=== PATIENT | female | born 1995 | race Caucasian/White ===

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

== ENCOUNTER → 2017-01-02 | Outpatient (REF) | payer OTHER | LOC: M LAB REF 13:17 | PROVIDERS: ATTEND Advanced Practice Midwife | DX: Z34.83 Encounter for supervision of other normal pregnancy, third trimester (principal) ==

== ENCOUNTER → 2017-01-02 | Outpatient (REF) | payer OTHER | LOC: M LAB REF 13:29 | PROVIDERS: ATTEND Advanced Practice Midwife | DX: Z34.83 Encounter for supervision of other normal pregnancy, third trimester (principal) ==

== ENCOUNTER 2017-01-14 12:05 | Inpatient (IN) | payer OTHER ==
[2017-01-14] VITALS (14 sets, daily range): BP systolic 110–164; BP diastolic 55–100
[~2017-01-14] VITALS: Ht 160 cm; Wt 82.9 kg
[~2017-01-14 12:05] MED LIST changes: -ACET50TA PO; -CORE6.25 PO; -PRIN5TAB PO; -ROBI30SU PO
[2017-01-14] MEDS ORDERED: ACET50TA PO (12:48)
[2017-01-14 13:25] LABS: MEAN CORPUSCULAR HEMOGLOBIN 26.7 pg (27.0-33.0); MEAN CORPUSCULAR HGB CONC 33.6 g/dl (32.0-36.5); MEAN CORPUSCULAR VOLUME 79.3 fl (80.0-96.0); RED CELL DISTRIBUTION WIDTH 13.2 % (11.5-14.5)
[2017-01-14] MEDS ORDERED: ROBI30SU PO (13:44)
[2017-01-14 13:56] LABS: ALBUMIN 2.4 GM/DL (3.2-5.2); ALBUMIN/GLOBULIN RATIO 0.63 (1.00-1.93); ALKALINE PHOSPHATASE 122 U/L (45-117); ALT/SGPT 18 U/L (12-78); ANION GAP 11 MEQ/L (8-16); AST/SGOT 26 U/L (15-37); BILIRUBIN,TOTAL 0.7 MG/DL (0.2-1.0); BLOOD UREA NITROGEN 7 MG/DL (7-18); CALCIUM LEVEL 8.9 MG/DL (8.5-10.1); CARBON DIOXIDE LEVEL 23 MEQ/L (21-32); CHLORIDE LEVEL 105 MEQ/L (98-107); GLUCOSE, FASTING 96 MG/DL (70-105); SODIUM LEVEL 139 MEQ/L (136-145); TOTAL PROTEIN 6.2 GM/DL (6.4-8.2)
[2017-01-14 14:05] LABS: POTASSIUM SERUM 2.7 MEQ/L (3.5-5.1)
--- NOTE | 2017-01-14 14:46 | REP ---
Portable chest, 01:47 p.m., single AP view, the patient upright: Comparison is 04/05 2002. There are diffuse bilateral interstitial and alveolar infiltrates, significantly worse on the right. There are no pleural effusions. Cardiac size is upper normal. The inocencia, mediastinum, and bony thorax are unremarkable. Signed by Dennys Rutherford MD 01/14/2017 02:37 P
[2017-01-14] MEDS ORDERED: ceFAZolin 2 GM/D5W 50 ML IV BAG (J0690) As Ordered ONE (14:59)
[2017-01-14] MEDS ORDERED: KCL 10MEQ IN 100ML SWI (KRUN) 10 MEQ in APPROPRIATE DILUENT 1 EA IV ONE ×6 (15:00→19:00)
[2017-01-14] MEDS ORDERED: OXYTOCIN INJ 10 UNITS/ML VIAL (J2590) As Ordered ONE (15:38)
[2017-01-14] MEDS ORDERED: PHENYLEPHRINE INJ 10MG/ML VIAL (J2370) As Ordered ONE (15:38)
[2017-01-14] MEDS ORDERED: fentaNYL 250 MCG/5 ML INJECTION (J3010) As Ordered ONE (15:38)
[2017-01-14] MEDS ORDERED: PROPOFOL 200 MG/20 ML VIAL As Ordered ONE (15:38)
[2017-01-14] MEDS ORDERED: ROCURONIUM BROMIDE 50 MG/5 ML VIAL/SYRINGE As Ordered ONE (15:38)
[2017-01-14] MEDS ORDERED: KETOROLAC 60 MG/2 ML VIAL (J1885) As Ordered ONE (15:38)
[2017-01-14] MEDS ORDERED: ETOMIDATE INJ 20MG/10ML VIAL As Ordered ONE (15:38)
[2017-01-14] MEDS ORDERED: LIDOCAINE 2% INJ 100 MG/5 ML SDV (FOR ANES.) As Ordered ONE (15:38)
[2017-01-14] MEDS ORDERED: METOCLOPRAMIDE INJ 10MG/2ML VIAL (J2765) As Ordered ONE (15:38)
[2017-01-14] MEDS ORDERED: dexameTHASONE 4 MG/ML 1ML VIAL (J1100) As Ordered ONE (15:38)
[2017-01-14] MEDS ORDERED: MIDAZOLAM INJ 2 MG/2 ML VIAL (J2250) As Ordered ONE (15:38)
[2017-01-14] MEDS ORDERED: ONDANSETRON 4MG/2ML VIAL (J2405) As Ordered ONE (15:38)
--- NOTE | 2017-01-14 15:50 | CR ---
DATE OF CONSULTATION: 01/14/2017 REFERRING PHYSICIAN: Dr. Gordon INDICATION: Congestive heart failure. HISTORY OF PRESENT ILLNESS: Ms. Brand is a 21-year-old female who is about to deliver her first baby. Apparently the was completely unremarkable until approximately 1 week ago when she starting having cough and slowly progressive exertional dyspnea. She also noted episode of chest pain on deep inspiration. Mild peripheral edema occurred as well. She was seen at her LAW CLERK physician's office earlier today and was found to be in significant amount of respiratory distress. She was brought to hospital for delivery. At the time of my evaluation the patient feels short of breath but does not appear to be in any extremis and certainly appears relatively comfortable. Her vital signs currently reveal blood pressure 155/89, heart rate is around 110 beats per minute, it is regular, saturation is around 90-92% on 2 liters of oxygen by nasal cannula. Her weight was documented as 96 kg. She is alert and oriented and appropriate. Her JVP does not appear grossly elevated. Lungs are relatively clear to auscultation. There are somewhat diminished breath sounds over both bases but it is subtle and there is only occasional end inspiratory crackle, air movement appears to be good. Heart exam reveals muffled heart sound related to her but I do not appreciate any chago gallop, I do not appreciate any murmur and I do not appreciate any rub. The precordial impulse is clearly displaced. Abdomen is but otherwise soft. There is 1+ peripheral edema. Neurologically she is intact. Skin exam reveals scattered blotchy erythema. LABORATORY DATA: As of today, her basic metabolic panel reveals sodium 139, potassium 2.7, BUN 7, creatinine 0.7, normal liver function test other than albumin 2.4 and protein 6.2. CBC: WBC count 18,000, hemoglobin 11, hematocrit 33 and platelet count 294,000. Urine toxicology screen was negative. Urinalysis screened negative for protein. Serology for syphilis is pending. Chest x-ray reveals cardiomegaly and pulmonary edema. Bedside echocardiogram performed a few minutes ago revealed global systolic dysfunction with estimated LVEF around 25%. There is no significant valvular disease. Small to moderate-sized pericardial effusion is noted. There appears to be some early collapse of right atrium, but it is principally in systole, no obvious diastolic collapse is noted. There is no fluctuation on mitral inflow velocity. Unable to estimate central venous pressure and pulmonary artery pressure. COMMENT: Ms. Brand is a 21-year-old previously healthy female who presents essentially in labor with signs of congestive heart failure and she has evidence for severe left ventricular systolic dysfunction, systolic congestive heart failure and also has pericardial effusion. At this point the priority is to stabilize the patient and deliver the baby. The plan is to take her to the OR as soon as possible. She already received potassium supplementation by Dr. Gordon. Will give her 40 mg of IV Lasix. I spoke with Dr. Whitaker, the anesthesiologist who will be performing the anesthesia for the surgery and there is a plan for general anesthesia as she otherwise will not tolerated horizontal position. She will also receive an A-line for the delivery. After the delivery she will be brought to intensive care unit, the potential extubation will depend on her condition. I do expect that with delivery the condition will probably improve, but it is likely that she will continue to struggle with congestive heart failure. As far as the etiology is concerned, I am not totally convinced that this represents peripartum cardiomyopathy even though it fulfills a lot of the criteria. The one thing that in my opinion is unusual is the presence of pericardial effusion. I will send pro-BNP and troponin to make sure that she does not have active myocarditis. So far her QRS complex on ECG is narrow and she has not had any arrhythmias so that makes it slightly less likely. Depending on her condition we potentially could even consider transfer to a higher care center. I will follow the patient closely with you.
[2017-01-14] MEDS ORDERED: FUROSEMIDE 40 MG/4 ML VIAL (J1940) IV ONE (16:00)
[2017-01-14] MEDS ORDERED: SUCCINYLCHOLINE 100 MG/5 ML SYRINGE (J0330) As Ordered ONE (16:25)
[2017-01-14] MEDS ORDERED: FUROSEMIDE 100 MG/10 ML VIAL (J1940) As Ordered ONE (16:47)
[2017-01-14 16:55] LABS: CORD GAS ABE V -1.9; CORD GAS HCO3 V 24.4 MEQ/L; CORD GAS O2 SAT V 39.5 %; CORD GAS PCO2 V 46.8 mmHg; CORD GAS PH V 7.335 UNITS; CORD GAS PO2 V 18.3 mmHg; CORD GAS SBC V 21.2 MEQ/L; CORD GAS TCO2 V 25.8 MEQ/L
--- NOTE | 2017-01-14 16:55 | ECGEPIP ---
Stationary ECG Study [facility] Test Date: 2017-01-14 Pat Name: KORI CHANG Department: Room: [place] [address] Gender: F Housing Assistant Property Manager: BERTA : 1995 Requested By: MARIA ESTHER Kohler Order Number: [id number] Reading MD: Alyx Wagoner Measurements Intervals [place] Rate: 104 P: 22 SC: 125 QRS: 16 QRSD: 90 T: 57 QT: 354 QTc: 467 Interpretive Statements SINUS TACHYCARDIA DIFFUSE ST T-WAVE ABNORMALITY ABNORMAL RHYTHM ECG NO PRIOR Electronically Signed On 01-14-2017 16:55:12 EDT by Alyx Wagoner
[2017-01-14 16:56] LABS: CORD GAS ABE A -3.6; CORD GAS HCO3 A 24.6 MEQ/L; CORD GAS O2 SAT A < 15.0 %; CORD GAS PCO2 A 55.9 mmHg; CORD GAS PH A 7.261 UNITS; CORD GAS PO2 A < 10.0 mmHg; CORD GAS TCO2 A 26.3 MEQ/L
--- NOTE | 2017-01-14 17:11 | ECHO ---
DATE OF PROCEDURE: 01/14/2017 INDICATION: Cardiomegaly, congestive heart failure. The patient measures 63 inches and weighs 96.1 kg REFERRING PHYSICIAN: Dr. See Clark Study was performed on 01/14/2017. DIMENSIONS: IVS: 1.1 LV: 5.0 LVPW: 1.1 LA: 3.5 Aorta: 2.8 FINDINGS: The study is of good technical quality but for absence of subcostal views. The patient is in 39th week of . Left ventricle is of normal size. It is globally hypokinetic. I estimate overall ejection fraction (EF) around 25%. Right ventricle does not appear to be grossly enlarged and appears to be normally contractile. Both atria appear normal. All four cardiac valves were reasonably well seen and appear normal. There is mild to moderate-sized pericardial effusion that is most apparent adjacent to the right ventricle. There is very apparent systolic indentation of the right atrium, but I do not appreciate any diastolic collapse as such. Inferior vena cava was not visualized. Aortic root is normal. Aortic arch and abdominal aorta were not seen. Doppler interrogation of aortic valve reveals no stenosis or insufficiency. There is trace mitral insufficiency. Tricuspid and pulmonic valves are also functionally competent. Evaluation of diastolic function is inconclusive. The patient is tachycardiac with heart rate approximately 110 beats per minute, and there is fusion of E and A wave on mitral inflow. E prime septal is 12.4 and E prime lateral is 9.3 cm/s, which are relatively preserved numbers. CONCLUSIONS: 1. Study is of acceptable technical quality. 2. Normal left ventricular (LV) size with severe global hypokinesis and overall estimated left ventricular ejection fraction (LVEF) approximately 25%. 3. Mild to moderate-sized pericardial effusion. 4. No significant valvular disease. 5. Unable to estimate central venous pressure and pulmonary artery pressure. 6. Inconclusive evaluation of diastolic function. COMMENTS: Subacute bacterial endocarditis (SBE) prophylaxis is not recommended. The results were discussed with Dr. Whitaker and Dr. Gordon.
[2017-01-14] MEDS ORDERED: LABETALOL HCL 100 MG/20 ML VIAL As Ordered ONE (17:15)
[2017-01-14] MEDS ORDERED: MAGNESIUM SULFATE 4% INJ 20GM/500ML (40MG/ML) (J3475) As Ordered ONE (17:31)
[2017-01-14] MEDS ORDERED: PROPOFOL 1,000 MG/100 ML VIAL As Ordered ONE ×2 (17:32→20:43)
[2017-01-14] MEDS: PROPOFOL 1,000 MG in APPROPRIATE DILUENT 1 EA IV SCH ×2 (17:35→20:48)
[2017-01-14 17:47] LABS: ABG BASE EXCESS -3.7 (-2.0-2.0); ABG PARTIAL PRESSURE CO2 42.4 mmHg (35.0-45.0); ABG PARTIAL PRESSURE O2 113.7 mmHg (75.0-100.0); ABG STANDARD HCO3 21.4 MEQ/L (22.0-26.0); ABG TOTAL CO2 23.3 MEQ/L (22.0-29.0); ABG pH (ARTERIAL) 7.333 UNITS (7.350-7.450)
[2017-01-14 17:53] LABS: MEAN CORPUSCULAR HEMOGLOBIN 27.1 pg (27.0-33.0); MEAN CORPUSCULAR HGB CONC 33.7 g/dl (32.0-36.5); MEAN CORPUSCULAR VOLUME 80.3 fl (80.0-96.0); RED CELL DISTRIBUTION WIDTH 13.2 % (11.5-14.5); WHITE BLOOD COUNT 19.3 10^3/uL (4.0-10.0)
[2017-01-14] MEDS ORDERED: fentaNYL 100 MCG/2 ML INJECTION (J3010) IV PRN (18:00)
[2017-01-14] MEDS: MAG Sulf (OBGYN) 20GM/500ML 20,000 MG in APPROPRIATE DILUENT 1 EA IV SCH ×2 (18:00→21:17)
[2017-01-14] MEDS ORDERED: ONDANSETRON 4MG/2ML VIAL (J2405) IV PRN (18:00)
--- NOTE | 2017-01-14 18:14 | IPN ---
DATE: 01/14/2017 Time: 5:50 pm I saw Miss Brand in the recovery room. She had a . It was apparently a difficult procedure due to a lot of adhesions from her prior abdominal surgery. She also had difficult induction with significant desaturation and required high doses of oxygen throughout the surgery to maintain saturation. She received additional dose of Lasix and put out approximately 2 liters of urine during the surgery. In recovery room her blood pressure was initially very high, but when she was started on propofol drip and settled down her blood pressure was around 140 systolic with significant fluctuations of heart rate between 100 and 110 beats per minute. She was sedated. Her jugular venous pressure was difficult to estimate but does not appear high on my exam. Lungs: Reveal bilateral crackles throughout her lung hansen. Heart: Exam reveals tachycardiac rate with regular rhythm. I do not appreciate chago gallop. I do not appreciate rub. There is still some mild degree of peripheral edema. ASSESSMENT/PLAN: Miss Brand is 21-year-old female who just underwent after she presented with fairly acute onset of congestive heart failure and pulmonary edema. She remains critically ill and echocardiogram reveal evidence for severe left ventricular systolic dysfunction. At this point, I am somewhat encouraged that she maintains good urine output and we will continue diuretics. I am going to wait until her condition stabilizes on IV propofol and all the lines are placed and depending on her blood pressure; if there is still an option will introduce IV nitroglycerin. Simultaneously, I am going to continue diuretics, but for first of all we need to replenish potassium. She will very likely remain critically ill for foreseeable future and there is a plan to keep her intubated at least overnight. Dr. Quiros will be managing ventilation and sedation.
[2017-01-14 18:18] LABS: ALBUMIN 2.3 GM/DL (3.2-5.2); ALBUMIN/GLOBULIN RATIO 0.51 (1.00-1.93); ALKALINE PHOSPHATASE 117 U/L (45-117); ALT/SGPT 20 U/L (12-78); ANION GAP 13 MEQ/L (8-16); AST/SGOT 28 U/L (15-37); BILIRUBIN,TOTAL 0.7 MG/DL (0.2-1.0); BLOOD UREA NITROGEN 7 MG/DL (7-18); CALCIUM LEVEL 9.1 MG/DL (8.5-10.1); CARBON DIOXIDE LEVEL 24 MEQ/L (21-32); CHLORIDE LEVEL 103 MEQ/L (98-107); GLUCOSE, FASTING 116 MG/DL (70-105); POTASSIUM SERUM 2.6 MEQ/L (3.5-5.1); SODIUM LEVEL 140 MEQ/L (136-145); TOTAL PROTEIN 6.8 GM/DL (6.4-8.2)
--- NOTE | 2017-01-14 18:23 | REP ---
Chest one-view HISTORY: A pulmonary edema Comparison: 01:47 p.m. 01/14/2017 Diffuse patchy density is present in the lungs consistent with bilateral infiltrates or edema increased in the right upper lobe compared to the previous study. . The heart is normal in size. The pulmonary vasculature is normal in appearance. An ET tube is present. Impression: Bilateral infiltrates or edema slightly increased in the right upper lobe compared to the previous study. Signed by Stevie Fernandez MD 01/14/2017 06:15 P
[2017-01-14] MEDS ORDERED: MAG Sulf (L&D) 4 GM/100 ML 4 GM in APPROPRIATE DILUENT 1 EA IV ONE (18:30)
--- NOTE | 2017-01-14 18:59 | CCN ---
DATE: 01/14/2017 START TIME: 172. STOP TIME: 1819. I attended Ms. Brand in the recovery room. In essence, this a 21-year-old female, 38 weeks gravid, who presented with shortness of breath. She was found to have pulmonary edema. Echocardiogram done emergently showed an ejection fraction (EF) of 25%, basically globally hypokinetic, with a small pericardial effusion not felt to be hemodynamically significant. This points to either a viral or a peripartum etiology. She was tachypneic but oxygenating. She received diuretics. She did feel a little bit better. She voided about 300-400 mL at that point. She was than taken emergently to the operating room for a stat section. Intraoperatively did well, requiring at least 10 cm of water of PEEP and then FiO2 of 60%. She was given further diuretics and voided approximately another 900 mL. She was given even more and voided another 600-800 mL. Potassium preoperatively was 2.7. She was receiving potassium replenishment the entire time, and it is still currently running. Repeat electrolytes are pending. In the recovery room ventilator manipulations were made by myself. She is currently on a PRVC rate of 12, tidal volume 400, PEEP of 10, FiO2 of 60%. Saturations run 91-96%. Blood gas obtained just prior to my arrival showed a pH of 7.33, pCO2 of 42.4, and pO2 of 113.7, 97.8% saturation on pressure control mode. Tidal volumes between 400-420 with PEEP of 5, FiO2 of 100%. Hemoglobin is 11.8, white blood cell count 19.3, platelet count 324,000. Preoperatively had a pro-BNP of 3897. Chest x-ray preoperatively showed cardiomegaly with bilateral findings consistent with pulmonary edema. Currently on exam, she is sedated on propofol. Heart rate initially about 120 but with increase in the propofol now is between 98-102 with a sinus mechanism. Blood pressure initially about 170 systolic currently, 132 systolic currently. She does over-breathe the ventilator with a respiratory rate between 18-22 without accessory muscle use. She is afebrile. HEENT is otherwise normocephalic, atraumatic. Oral endotracheal tube in place. Pupils do react, sclerae clear. Trachea is in the midline. Chest shows some symmetric expansion. There is coarse inspiratory noise scattered throughout with dependent crackles. No rubs or wheezes. Cardiac exam has a laterally displaced point of maximal impulse (PMI). Mildly tachycardic. No obvious rub. Abdomen shows her dressings to be intact. Extremities show trace edema but no cyanosis or clubbing. Neurologically she is sedate but moves all extremities. The remainder of her available laboratories show her white blood cell count and hematocrit as outlined above, and chemistries are still pending. Repeat chest x-ray done in the recovery room shows the endotracheal tube to be in good position about 2 cm above the sawyer. Increased cardiac silhouette with persistent pulmonary edema is again noted. The most pressuring problems requiring my immediate presence at the bedside: 1. Hypoxemic respiratory failure secondary to pulmonary edema. 2. Pulmonary edema secondary to cardiomyopathy, viral versus peripartum cardiomyopathy. 3. Now state. At this point, we will assure adequate sedation and pain control. Further diuresis as well as blood pressure control in view of consideration of the addition of nitroglycerine being made by cardiology. We will continue intravenous (IV) propofol as well as as-needed Versed and morphine as needed for pain. Ulcer and deep vein thrombosis (DVT) prophylaxis per the primary service. We will monitor closely regarding her overall cardiac status. I have spoken at length with Dr. Clark, who is managing that portion of her care. Decision regarding timing of repeat echo will be per his discretion. She does have an A-line in place in the left wrist. She has a Black in place as well. I anxiously await her repeat electrolytes. My hope is that with diuresis we will be able to achieve extubation in the next 24-48 hours. Overall she does remain critically ill. I left the bedside at 1820 hours. There was 52 minutes of critical care time delivered at the bedside, not including procedures. JULIET
[2017-01-14] MEDS: PANTOPRAZOLE 40MG INJ (PROTONIX) (C9113) IV SCH (19:33)
[2017-01-14] MEDS: KCL 10MEQ IN 100ML SWI (KRUN) 10 MEQ in APPROPRIATE DILUENT 1 EA IV SCH ×4 (19:34→20:48)
--- NOTE | 2017-01-14 19:56 | HPE ---
DATE OF ADMISSION: 01/14/2017 HISTORY: A 21-year-old G1, P0 female at 38-3/7 weeks gestation by last menstrual period (LMP) consistent with 10-week ultrasound, estimated date of confinement (EDC) 01/25/2017 presents with shortness of breath for the last 2 days. She has had a dry cough for about a week. Her shortness of breath has become progressively worse. She also has had a moderate headache as well. She presented to the office for a routine visit and was noted to have elevated blood pressure of 154/102. She also had worsening edema noted, but she was sent to labor floor for evaluation. COURSE: The patient initiated care at 10 weeks gestation on 06/29/2016. Her first-trimester blood pressure was 124/64, weight 186 pounds. course was unremarkable until her last visit in the office. MEDICAL HISTORY: History of gastroschisis. SURGICAL HISTORY: Gastroschisis repair as an . ALLERGIES: None. SOCIAL HISTORY: Father of the baby is involved. The patient denies cigarettes, alcohol, or drug use. She lives in [place], [place]. FAMILY HISTORY: Noncontributory. PHYSICAL EXAMINATION: Blood pressure is 154/102, 1+ proteinuria, pulse 104, respiratory rate 30. She appears to be short of breath. HEAD AND NECK: Normal. LUNGS: Showed decreased breath sounds bilaterally. HEART: Regular rhythm and tachycardic. ABDOMEN: Nontender, gravid. heart tone are category 1. Contractions rare. EXTREMITIES: 3+ lower extremity edema. LABORATORY DATA: Reveal blood type O positive, Rubella equivocal, RPR nonreactive. Hepatitis B and C negative. Diabetes screen 131. GBS negative on 01/02/2017. ASSESSMENT: A 21-year-old G1, P0 at 38-3/7 weeks gestation with pre-eclampsia with severe features, who also appears to be in respiratory distress, most likely pulmonary edema. Obtain chest x-ray, EKG. Obtain appropriate labs. Consult cardiology. Patient could have pulmonary edema or possible dilated cardiomyopathy.
[2017-01-14] MEDS ORDERED: POTASSIUM CHLORIDE 10 MEQ SR TABLET PO SCH (21:00)
[2017-01-14] MEDS ORDERED: LISINOPRIL *2.5 MG* TAB PO SCH (21:00)
[2017-01-14] MEDS: SPIRONOLACTONE 12.5MG PER 1/2 TABLET PO SCH (21:11)
[2017-01-14] MEDS: MORPHINE 2 MG/ML 1ML SYRINGE IV PRN (21:13)
[2017-01-14] MEDS: POTASSIUM CHLORIDE 10% LIQ 20 MEQ/15 ML UDC PO SCH (21:29)
[2017-01-15] VITALS (29 sets, daily range): BP systolic 90–195; BP diastolic 50–93; O2SAT 93
[2017-01-15] MEDS: PROPOFOL 1,000 MG in APPROPRIATE DILUENT 1 EA IV SCH ×5 (00:16→21:35)
[2017-01-15 00:30] LABS: ANION GAP 8 MEQ/L (8-16); BLOOD UREA NITROGEN 8 MG/DL (7-18); CALCIUM LEVEL 8.5 MG/DL (8.5-10.1); CARBON DIOXIDE LEVEL 28 MEQ/L (21-32); CHLORIDE LEVEL 104 MEQ/L (98-107); CREATININE FOR GFR 0.79 MG/DL (0.55-1.02); GLUCOSE, FASTING 109 MG/DL (70-105); POTASSIUM SERUM 3.1 MEQ/L (3.5-5.1); SODIUM LEVEL 140 MEQ/L (136-145)
[2017-01-15] MEDS ORDERED: POTASSIUM CHLORIDE 10% LIQ 20 MEQ/15 ML UDC PO ONE ×2 (00:45→16:30)
[2017-01-15] MEDS: MAG Sulf (OBGYN) 20GM/500ML 20,000 MG in APPROPRIATE DILUENT 1 EA IV SCH ×2 (01:52→17:11)
[2017-01-15] MEDS: MIDAZOLAM INJ 2 MG/2 ML VIAL (J2250) IV PRN ×5 (02:05→23:50)
[2017-01-15 05:43] LABS: MEAN CORPUSCULAR HEMOGLOBIN 26.5 pg (27.0-33.0); MEAN CORPUSCULAR VOLUME 80.4 fl (80.0-96.0); RED CELL DISTRIBUTION WIDTH 13.4 % (11.5-14.5); WHITE BLOOD COUNT 17.1 10^3/uL (4.0-10.0)
[2017-01-15 06:13] LABS: ANION GAP 12 MEQ/L (8-16); BLOOD UREA NITROGEN 8 MG/DL (7-18); CALCIUM LEVEL 8.8 MG/DL (8.5-10.1); CARBON DIOXIDE LEVEL 26 MEQ/L (21-32); CHLORIDE LEVEL 104 MEQ/L (98-107); CREATININE FOR GFR 0.76 MG/DL (0.55-1.02); GLUCOSE, FASTING 103 MG/DL (70-105); POTASSIUM SERUM 3.2 MEQ/L (3.5-5.1); SODIUM LEVEL 142 MEQ/L (136-145)
[2017-01-15 06:18] LABS: MAGNESIUM LEVEL 7.2 MG/DL (1.4-2.0)
--- NOTE | 2017-01-15 07:21 | RO ---
DATE OF OPERATION: 01/14/2017 PREOPERATIVE DIAGNOSES: 38-3/7 weeks gestation, severe preeclampsia, peripartum cardiomyopathy with pulmonary edema. POSTOPERATIVE DIAGNOSES: 38-3/7 weeks gestation, severe preeclampsia, peripartum cardiomyopathy with pulmonary edema. PROCEDURE: Primary low transverse section. SURGEON: Stevie Gordon MD DIRECTOR OF STUDENT SERVICES: Dr. Tamar Hays ANESTHESIA: General endotracheal. ESTIMATED BLOOD LOSS: 800 mL. URINE OUTPUT: 1300 mL. FINDINGS: 7-pound 9-ounce male infant, scores 7 and 9. Dense adhesions of bowel to the uterus including small bowel adherent to the anterior uterus. The uterus is completely encased in adhesions and unable to exteriorized. Adhesions were likely related to prior surgery for gastroschisis as an infant. BRIEF SUMMARY: The patient taken the operating room, where general endotracheal anesthesia in induced. She had been prepped and draped previously in a sterile fashion in the supine position. Black catheter was already in place. A Pfannenstiel skin incision was made with the scalpel and carried through to the fascia. The fascia was nicked and extended. The fascia was dissected off the rectus muscles and the rectus muscles were . The peritoneal cavity was attempted to be entered, however, dense adhesions were encountered. The intestine was noted on the right hand side of the uterine incision adherent to the uterus. Metzenbaum scissors are used to dissect adhesions to the lower uterine segment. A window in the lower uterine segment was able to be obtained which was free of bowel adhesions and a curvilinear incision was made in that area. Clear fluid was noted. The incision was extended manually. The was delivered in the vertex position without difficulty. The cord was doubly clamped and cut. The was handed off to the awaiting mortgage servicing specialist. The placenta was manually removed and the uterus cleared of clots and debris. The uterine incision was closed with 0 Vicryl in a running locked fashion. A second imbricating layer of 0 Vicryl was placed. The bowel was thoroughly inspected and there was no evidence of injury to the bowel. The bowel was not able to be completely excised from the surface of the uterus due to dense adhesions. The fascia was closed with 0 Vicryl in a running fashion. The deep layer was irrigated and closed with 3-0 chromic. The skin was closed with 4-0 Monocryl subcuticular sutures. Sponge, instrument, and needle counts were correct.
--- NOTE | 2017-01-15 07:31 | REP ---
Clinical: Pulmonary edema. Comparison: 01/14/2017. Findings: Endotracheal tube and nasogastric tube in stable, satisfactory position. Lung hansen demonstrate improved aeration with continued moderate pulmonary interstitial edema and possible small layering effusion. No pneumothorax. Skeletal structures intact. Impression: Improved aeration with moderate interstitial edema and possible small layering effusion. Signed by Adrian Arvizu MD 01/15/2017 07:23 A
--- NOTE | 2017-01-15 07:38 | IPN ---
DATE: 01/15/2017 Mrs. Brand had a relatively good night. She remained intubated and sedated in the intensive care unit (ICU), but she maintained very good urine output and eventually her balance over the last 24 hours was almost 7 liters negative. She maintained relatively good blood pressures throughout night and did not have any arrhythmias. Her FIO2 demand has decreased to 50%. She is still sedated, but easily arousable and there was some communication with the family earlier today and she seems completely appropriate. On physical exam at the time of my exam, she is sedated and she would not easily respond to verbal stimuli, but blood pressure was 109/56 by noninvasive measurement and 144/70 by A line. Heart rate around 100-110. Saturation 96-97% on 50% FIO2. Her weight was documented as 89.5 kg. Her jugular venous pulse (JVP) is not elevated. Lungs are relatively clear with only occasional crackle. Heart exam reveals regular rhythm. I still do not appreciate any gallop or rub. Also, no murmur. Abdomen is soft. There is still at least 1+ peripheral edema. Neurologic exam is limited by sedation. Laboratory-[facility], basic metabolic panel: sodium 142, potassium 3.2, BUN 8, creatinine 0.8 and glucose 103. Magnesium 7.2 and troponin 0.02. CBC reveals hemoglobin 8.9, hematocrit 27, and platelet count 323,000. ECG at the time of my dictation is pending. Chest x-ray reveals ongoing interstitial infiltrates consistent with congestive heart failure, but improved since previous film. ASSESSMENT/PLAN: Ms. Brand is a 21-year-old white female who presented yesterday with pulmonary edema and was taken semi emergently to the operating room for . Subsequently, she remained intubated. An echocardiogram performed prior to the surgery revealed severe LV systolic dysfunction and small to moderate-sized pericardial effusion. She did well overnight. We accomplished very good diuretic response. I think I will be able to advance the dose of lisinopril to 5 mg twice a day. Will continue ongoing potassium replacement. I will get another basic metabolic panel this afternoon. I think there is a reasonable chance that she will be extubated today. She still requires a fair amount of FiO2, but I am hoping that with more diuresis this will come down. Further management will depend on her clinical course. I had a talk about this with her father at bedside this morning.
[2017-01-15] MEDS: FUROSEMIDE 20 MG/2 ML VIAL (J1940) IV SCH ×2 (08:12→15:56)
[2017-01-15] MEDS: PANTOPRAZOLE 40MG INJ (PROTONIX) (C9113) IV SCH (08:12)
[2017-01-15] MEDS: POTASSIUM CHLORIDE 10% LIQ 20 MEQ/15 ML UDC PO SCH ×2 (08:12→22:27)
[2017-01-15] MEDS: LISINOPRIL 5 MG TAB PO SCH ×2 (08:12→21:00)
[2017-01-15] MEDS: ENOXAPARIN 30 MG/0.3 ML SYR (J1650) SC SCH (08:13)
[2017-01-15] MEDS: MORPHINE 2 MG/ML 1ML SYRINGE IV PRN ×6 (08:16→23:42)
[2017-01-15 08:53] LABS: ABG HCO3 24.2 MEQ/L (22.0-26.0); ABG PARTIAL PRESSURE CO2 33.2 mmHg (35.0-45.0); ABG PARTIAL PRESSURE O2 66.8 mmHg (75.0-100.0); ABG STANDARD HCO3 25.3 MEQ/L (22.0-26.0); ABG TOTAL CO2 25.2 MEQ/L (22.0-29.0)
[2017-01-15] MEDS ORDERED: ALBUTEROL SULFATE 2.5 MG/0.5 ML INH NEB SOLN NEB PRN (10:00)
[2017-01-15 10:48] LABS: ABG PARTIAL PRESSURE CO2 33.3 mmHg (35.0-45.0); ABG PARTIAL PRESSURE O2 97.8 mmHg (75.0-100.0); ABG STANDARD HCO3 26.3 MEQ/L (22.0-26.0); ABG TOTAL CO2 26.1 MEQ/L (22.0-29.0); ABG pH (ARTERIAL) 7.494 UNITS (7.350-7.450)
--- NOTE | 2017-01-15 10:59 | CCN ---
DATE: 01/15/2017 START TIME: 919 STOP TIME: 1007 I again attended Cherri Brand. The patient has been examined and record has been reviewed and I have spoken at length with her mother at the bedside as well as with Dr. Clark regarding her status. She remains intubated, sedated, mechanically ventilated. With sedation vacation this morning she is awake, alert and follows commands. She is somewhat tearful. However, with decreased sedation she has much more in the way of secretions and requires a significant increase in her FiO2. She was then resedated. T-max overnight 98.3. Blood pressure 97 to 195 systolic. Currently in the 120s to 140s systolic. Heart rate generally in the 90s to the 110s with a sinus mechanism. Respiratory rate varies from about 16 to 24 without accessory muscle use. She was as low as 35% on her FiO2, but currently after sedation vacation is back to 100% FiO2 and this is being weaned as tolerated. Most recent laboratories show a white blood cell count of 17.1, hemoglobin 8.9, and platelet count of 323,000. No differential available. Sodium 142, potassium 3.2, chloride 104, CO2 26, BUN 8, creatinine 0.76, glucose 103. Magnesium after supplementation yesterday elevated at 7.2. Troponin negative at 0.02. Blood gas done this morning on a PRVC mode, rate of 12, tidal volume 400, PEEP of 10 and FiO2 of 35% has a pH of 7.48, pCO2 33.2 and pO2 of 66.8, saturation 92%. Chest x-ray done portably shows the endotracheal tube in good position. Her bilateral increase in infiltrates consistent with edema, although less marked is persistent. She now has an orogastric tube in place. On exam, currently she is awake and follows all commands, quite tearful. Pupils do react. Sclerae are clear. Membranes are moist. Trachea is in the midline. Chest shows coarse inspiratory and expiratory noise with dependent crackles and coarse rhonchi that do clear somewhat with suctioning. No wheezes or rubs. No convincing egophony. Cardiac exam is mildly tachycardic, regular. No obvious rub. Peripheral pulses are palpable. There is persistent trace edema. Abdomen shows her dressings in place. Bowel sounds are active. No organomegaly or masses. Extremities without cyanosis or clubbing. Neurologically as outlined above. The most pressing problems requiring my presence at the bedside are: 1. Respiratory alkalosis. 2. Hypoxemic respiratory failure secondary to pulmonary edema. 3. Pulmonary edema secondary to cardiomyopathy. 4. state. As outlined above, I had a very lengthy discussion at the bedside with the patient and her mother. At this point, given her response to ventilator changes and lightened sedation, we are not ready for extubation. She had a significant diuresis yesterday, negative a little over 6 liters, but my suspicion, especially in view of her increased FiO2 requirements with decrease in her PEEP, is that she still is in a situation where she is going to require additional diuresis. I have spoken with Dr. Clark and he will board design engineer this. I will try to leave her on an SIMV with pressure support in hopes of continuing to keep respiratory musculature conditioned. Mother reports no smoking history. I will place her on bronchodilators to assist with secretion clearance however. Ventilator adjustments are made as needed. My strong suspicion is that she will not be able to be extubated today. We will proceed as outlined above. Repeat blood gases pending. Overall, she remains critically ill. Reassessment of her cardiac status would be at the discretion of Dr. Clark. I left the bedside at 1007 hours. 47 minutes of critical care time were delivered at the bedside, not including the procedures.
[2017-01-15] MEDS: ALBUTEROL SULFATE 2.5 MG/0.5 ML INH NEB SOLN NEB SCH ×4 (12:29→23:48)
[2017-01-15 15:55] LABS: ANION GAP 8 MEQ/L (8-16); BLOOD UREA NITROGEN 11 MG/DL (7-18); CALCIUM LEVEL 8.1 MG/DL (8.5-10.1); CARBON DIOXIDE LEVEL 31 MEQ/L (21-32); CHLORIDE LEVEL 104 MEQ/L (98-107); CREATININE FOR GFR 0.78 MG/DL (0.55-1.02); GLUCOSE, FASTING 84 MG/DL (70-105); POTASSIUM SERUM 3.4 MEQ/L (3.5-5.1); SODIUM LEVEL 143 MEQ/L (136-145)
--- NOTE | 2017-01-15 19:33 | ECGEPIP ---
Stationary ECG Study [facility] Test Date: 2017-01-15 Pat Name: KORI CHANG Department: Room: [place] [address] Gender: F Quilt Maker: NATHALIE : 1995 Requested By: See Clark Order Number: [id number] Reading MD: Alyx Wagoner Measurements Intervals [place] Rate: 92 P: 66 NV: 128 QRS: 56 QRSD: 99 T: 101 QT: 380 QTc: 472 Interpretive Statements SINUS RHYTHM MODERATE T-WAVE ABNORMALITY, CONSIDER ANTERIOR ISCHEMIA NEW C/W 01/14/17 Electronically Signed On 01-15-2017 19:33:09 EDT by Alyx Wagoner
[2017-01-15] MEDS: SPIRONOLACTONE 12.5MG PER 1/2 TABLET PO SCH (22:27)
[2017-01-16] VITALS (15 sets, daily range): BP systolic 103–124; BP diastolic 42–67; O2SAT 95
[2017-01-16] MEDS: PROPOFOL 1,000 MG in APPROPRIATE DILUENT 1 EA IV SCH ×2 (01:44→06:21)
[2017-01-16] MEDS: MIDAZOLAM INJ 2 MG/2 ML VIAL (J2250) IV PRN (03:20)
[2017-01-16] MEDS: MORPHINE 2 MG/ML 1ML SYRINGE IV PRN ×5 (03:21→11:31)
[2017-01-16] MEDS: ALBUTEROL SULFATE 2.5 MG/0.5 ML INH NEB SOLN NEB SCH ×6 (03:26→23:55)
[2017-01-16 05:39] LABS: ANION GAP 11 MEQ/L (8-16); BLOOD UREA NITROGEN 15 MG/DL (7-18); CALCIUM LEVEL 8.2 MG/DL (8.5-10.1); CARBON DIOXIDE LEVEL 28 MEQ/L (21-32); CHLORIDE LEVEL 105 MEQ/L (98-107); CREATININE FOR GFR 0.85 MG/DL (0.55-1.02); GLUCOSE, FASTING 96 MG/DL (70-105); POTASSIUM SERUM 3.4 MEQ/L (3.5-5.1); SODIUM LEVEL 144 MEQ/L (136-145)
--- NOTE | 2017-01-16 07:32 | IPN ---
DATE: 01/16/2017 Ms. Brand had a relatively good night. She was sedated, but she slept well. She did not have any arrhythmias. She has been diuresing well as well. Her balance yesterday was about 3.6 liters negative after being almost 7 liters negative the day before. On my exam, she is sedated but opens her eyes and seems to be appropriate. Blood pressure 107/55, heart rate has been mostly in 80s and 90s. She is still on 50% FiO2, but saturation is around the 99% romina. Her JVP does not appear high. Lungs are relatively clear. I do not appreciate any crackles or rhonchi. Heart exam reveals regular rhythm. Again, no murmur, gallop or rub is appreciated. The abdomen is soft. There is about 1+ peripheral edema. Neurologically, currently sedated but she apparently had completely appropriate interaction with family when the sedation was released earlier. Laboratory [place], basic metabolic panel reveals potassium 3.4, BUN 11, creatinine 0.9, glucose 96. ASSESSMENT/PLAN: Ms. 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 She was in florid congestive heart failure and after a remained intubated on ventilator. At this point, the principal goal is to get her extubated and in order to accomplish that she needs to be diuresed. So far, it has been doing well. She maintains a good blood pressure with very effective diuresis. Her renal function also remains normal. I am hopeful that she will be extubated today, even though she is still on 50% FiO2 and 10 of PEEP so it is not completely guaranteed. I was optimistic yesterday, but unfortunately she failed extubation attempt. From purely heart failure perspective, besides diuresis, she is on a low dose of spironolactone and CHRISTIE inhibitors. The dose was held last night because her blood pressure was too soft, but she will likely get the dose this morning. I had a long discussion with her and her mother at the bedside this morning where we talked about her prognosis and expected course over the next few days.
[2017-01-16] MEDS: POTASSIUM CHLORIDE 10% LIQ 20 MEQ/15 ML UDC PO SCH ×2 (08:24→20:45)
[2017-01-16] MEDS: PANTOPRAZOLE 40MG INJ (PROTONIX) (C9113) IV SCH (08:24)
[2017-01-16] MEDS: FUROSEMIDE 20 MG/2 ML VIAL (J1940) IV SCH ×3 (08:24→16:47)
[2017-01-16] MEDS: LISINOPRIL 5 MG TAB PO SCH ×2 (08:25→20:45)
[2017-01-16] MEDS: ENOXAPARIN 30 MG/0.3 ML SYR (J1650) SC SCH (08:25)
[2017-01-16 08:43] LABS: ABG BASE EXCESS 6.8 (-2.0-2.0); ABG HCO3 30.3 MEQ/L (22.0-26.0); ABG PARTIAL PRESSURE CO2 38.6 mmHg (35.0-45.0); ABG PARTIAL PRESSURE O2 125.6 mmHg (75.0-100.0); ABG STANDARD HCO3 30.7 MEQ/L (22.0-26.0); ABG TOTAL CO2 31.4 MEQ/L (22.0-29.0); ABG pH (ARTERIAL) 7.512 UNITS (7.350-7.450)
--- NOTE | 2017-01-16 09:59 | REP ---
Portable chest x-ray: Single view. History: Pulmonary edema. Comparison study: January 15, 2017. Findings: Endotracheal tube remains in good position. NG tube enters the left upper quadrant. EKG monitoring electrodes and oxygen delivery tubing is seen. Heart is not enlarged. There is a new right perihilar upper lobe opacity which may reflect atelectasis or infiltrate. Lungs are otherwise clear. No evidence of pleural effusion. Impression: New opacity right medial lung apex question atelectasis or infiltrate. Signed by Arie Garcai MD 01/16/2017 11:58 A
[2017-01-16] MEDS: PERCOCET 5MG/325MG TAB PO PRN ×2 (15:33→19:55)
[2017-01-16] MEDS ORDERED: ZOSYN 3.375 GM VIAL (J2543) As Ordered ONE (20:17)
[2017-01-16] MEDS: SPIRONOLACTONE 12.5MG PER 1/2 TABLET PO SCH (20:45)
[2017-01-17] VITALS: BP 131/68
[2017-01-17] MEDS: FUROSEMIDE 20 MG/2 ML VIAL (J1940) IV SCH ×3 (00:10→16:12)
[2017-01-17] MEDS: PERCOCET 5MG/325MG TAB PO PRN ×3 (00:11→20:31)
[2017-01-17] MEDS: ALBUTEROL SULFATE 2.5 MG/0.5 ML INH NEB SOLN NEB SCH ×5 (03:04→20:03)
[2017-01-17 04:00] VITALS: BP 114/61
[2017-01-17 04:57] LABS: MEAN CORPUSCULAR HEMOGLOBIN 26.6 pg (27.0-33.0); MEAN CORPUSCULAR HGB CONC 32.2 g/dl (32.0-36.5); MEAN CORPUSCULAR VOLUME 82.6 fl (80.0-96.0); RED CELL DISTRIBUTION WIDTH 13.4 % (11.5-14.5); WHITE BLOOD COUNT 11.4 10^3/uL (4.0-10.0)
[2017-01-17 05:21] LABS: ANION GAP 9 MEQ/L (8-16); BLOOD UREA NITROGEN 16 MG/DL (7-18); CARBON DIOXIDE LEVEL 29 MEQ/L (21-32); CHLORIDE LEVEL 100 MEQ/L (98-107); CREATININE FOR GFR 0.78 MG/DL (0.55-1.02); GLUCOSE, FASTING 105 MG/DL (70-105); POTASSIUM SERUM 3.3 MEQ/L (3.5-5.1); SODIUM LEVEL 138 MEQ/L (136-145)
[2017-01-17 08:00] VITALS: BP 128/74
--- NOTE | 2017-01-17 08:16 | IPN ---
DATE: 01/17/2017 Ms. Brand did well overnight. There were no events. When I walked into the room, she was lying flat in the intensive care unit (ICU) bed. There were no arrhythmias overnight. Vital Signs: Blood pressure 114/61. Heart rate has been mostly 90s and low 100s. She is afebrile. Saturation is 92-95% on room air. Fluid balance yesterday was about 2 liters negative. Weight is documented at 83.1 kg. Her jugular venous pulse (JVP) is not elevated. Lungs are relatively clear to auscultation, even though she started coughing with deep inspiration and there were occasional crackles. Heart Exam: Regular rhythm. I do not appreciate S3. There is a fairly quiet murmur at the apex, not more than 1/6 intensity, likely indicative of mitral regurgitation (MR). Abdomen is slightly tender, but soft. There is still mild peripheral edema. Neurologically she is intact. No skin lesions. Laboratory-[facility], CBC reveals WBC count 11.4, hemoglobin 9.3, hematocrit 28.9 and platelet count is 373,000. Basic metabolic panel is normal with the exception of low potassium of 3.3. ECG this morning is pending. ASSESSMENT/PLAN: Ms. Brand is a 21-year-old female who had an uneventful until about a week prior to current presentation when she developed symptoms suggestive of upper respiratory infection to be followed by gradually progressive dyspnea. 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 An echocardiogram revealed severe LV systolic dysfunction and mild to moderate- sized pericardial effusion. She was delivered by and remained intubated for almost 48 hours after the procedure. She was then successfully extubated after diuresing approximately 8 liters. Currently looks good. She still is mildly volume overloaded, but not much. I will cut down on the dose of furosemide. We have been having trouble maintaining sufficient potassium levels. She gets 80 mEq daily supplement and also spironolactone and CHRISTIE inhibitor, but yet her potassium remains low. I will give her yet another 40 mEq today. Hopefully, together with reducing the dose of diuretics, we will be able to finally normalize the level. Otherwise, I am going to leave the dose of CHRISTIE inhibitor unchanged. I am going to obtain just a limited echocardiogram to see how it is evolving her pericardial effusion. My tentative plan is to keep her in the hospital for an additional at least two or three days. I want her to stay on a monitored bed. Hopefully, tomorrow or the day after tomorrow, we can start introducing low-dose beta blockers. I expect that she will be leaving the hospital probably with a LifeVest unless there would be unexpected rapid improvement in LV systolic function. JULIET
[2017-01-17] MEDS: POTASSIUM CHLORIDE 10% LIQ 20 MEQ/15 ML UDC PO SCH ×2 (08:51→20:30)
[2017-01-17] MEDS: LISINOPRIL 5 MG TAB PO SCH ×2 (08:52→20:30)
[2017-01-17] MEDS: ENOXAPARIN 30 MG/0.3 ML SYR (J1650) SC SCH (08:52)
[2017-01-17] MEDS: PANTOPRAZOLE 40MG INJ (PROTONIX) (C9113) IV SCH (08:52)
[2017-01-17 12:00] VITALS: BP 127/66
[2017-01-17] MEDS ORDERED: POTASSIUM CHLORIDE 10 MEQ SR TABLET PO ONE (14:00)
--- NOTE | 2017-01-17 15:06 | ECGEPIP ---
Stationary ECG Study [facility] Test Date: 2017-01-17 Pat Name: KORI CHANG Department: Room: [place] [address] Gender: F Certified Peer Specialist: AUGUSTUS : 1995 Requested By: See Clark Order Number: [id number] Reading MD: Alyx Wagoner Measurements Intervals [place] Rate: 100 P: 49 [place]: 120 QRS: 22 QRSD: 90 T: 104 QT: 340 QTc: 439 Interpretive Statements SINUS TACHYCARDIA ANTLAT ST T-WAVE ABNORMALITY SHORT [place] SIMILAR TO 01/16/17 Electronically Signed On 01-17-2017 15:05:58 EDT by Alyx Wagoner
[2017-01-17 16:00] VITALS: BP 127/76
--- NOTE | 2017-01-17 19:15 | ECHO ---
DATE OF PROCEDURE: 01/17/2017 REFERRING PHYSICIAN: Myself. INDICATION: This is limited echocardiogram to follow up on mostly size of pericardial effusion. HEIGHT: 160 cm WEIGHT: 83 kg No routine measurements were obtained. FINDINGS: This is a limited transthoracic echocardiogram focusing on pericardial effusion. Left ventricle appears normal size. There is markedly improved contractility. There is still almost akinetic septum, but remaining LV dickson appear to contract normally and I estimate overall EF around 50%. Right ventricle does not appear enlarged. Both atria appear normal size. All four cardiac valves appear normal. There is small pericardial effusion mostly adjacent to the right ventricle. No signs of compression. Inferior vena cava is normal size. Aortic root is normal. By Doppler interrogation there is no significant aortic mild and tricuspid valve disease. Mitral inflow pattern is normal. CONCLUSIONS: 1. Limited echocardiogram. 2. Much improved LV systolic function, estimated LV EF 50%. 3. Small non-compressive pericardial effusion. 4. No significant valvular disease. 5. Normal central venous pressure. COMMENT: Subacute bacterial endocarditis (SBE) prophylaxis is not recommended. [facility]
[2017-01-17 20:00] VITALS: BP 141/65
[2017-01-17] MEDS: SPIRONOLACTONE 12.5MG PER 1/2 TABLET PO SCH (20:30)
[2017-01-18] VITALS: BP 133/63
[2017-01-18 04:00] VITALS: BP 134/58
[2017-01-18 05:04] LABS: ANION GAP 8 MEQ/L (8-16); BLOOD UREA NITROGEN 19 MG/DL (7-18); CALCIUM LEVEL 9.1 MG/DL (8.5-10.1); CARBON DIOXIDE LEVEL 28 MEQ/L (21-32); CHLORIDE LEVEL 103 MEQ/L (98-107); CREATININE FOR GFR 0.68 MG/DL (0.55-1.02); GLUCOSE, FASTING 105 MG/DL (70-105); SODIUM LEVEL 139 MEQ/L (136-145)
[2017-01-18 08:00] VITALS: BP 130/72
[2017-01-18] MEDS: ALBUTEROL SULFATE 2.5 MG/0.5 ML INH NEB SOLN NEB SCH ×6 (08:00→23:49)
[2017-01-18] MEDS: PANTOPRAZOLE 40MG INJ (PROTONIX) (C9113) IV SCH (10:18)
[2017-01-18] MEDS: LISINOPRIL 5 MG TAB PO SCH ×2 (10:19→20:05)
[2017-01-18] MEDS: POTASSIUM CHLORIDE 10% LIQ 20 MEQ/15 ML UDC PO SCH (10:19)
[2017-01-18] MEDS: ENOXAPARIN 30 MG/0.3 ML SYR (J1650) SC SCH (10:19)
[2017-01-18] MEDS: FUROSEMIDE 20 MG/2 ML VIAL (J1940) IV SCH (10:20)
[2017-01-18 12:00] VITALS: BP 133/62
[2017-01-18] MEDS: CARVedilol 6.25 MG TAB PO SCH ×2 (14:39→20:05)
--- NOTE | 2017-01-18 14:47 | IPN ---
CARDIOLOGY PROGRESS NOTE COVERING FOR DR. MCMILLAN DATE: 01/18/2017 SUBJECTIVE: At this point the patient claims to feel extremely well. Has been up in the room without shortness of breath or faintness. Is very happy with a dramatic reduction in her systemic edema. Reins free of any palpitations or chest discomfort. OBJECTIVE: Pleasant young lady currently lying comfortably with head of bed elevated only 30 degrees. Slight pallor, but no cyanosis. Normal oral moisture. Heart rate 100 beats per minute and regular. Blood pressure 133/62 . Respiratory rate 16 per minute. O2 saturation 99% on room air. Afebrile. Weight 82.9 kg down from admission weight of 96 kg associated with a negative fluid balance of some 17 liters over the course the past 5 days. Trachea midline. Neck veins are actually normal at this time. Good air entry over both lung hansen with no adventitious sounds. Normal S1, S2 with no current audible gallop. Has a flow murmur systolic ejection type grade 2/6 along the left sternal border. No audible rub. Her extremities are warm with good pulses and at this time no dependent edema whatsoever. environmental monitoring technician: This has shown sinus rhythm/sinus tachycardia only. EKG: Tracing yesterday showed sinus tachycardia at 100 beats per minute and has subtle nonspecific anterolateral ST/T-wave abnormalities that appeared to be less marked than on her admission. Hemoglobin is 9.3 today. White blood cell count has come down to 11.4 thousand, normal platelet count. Her electrolytes today are normal. BUN has increased slightly to 19, creatinine 0.7, fasting glucose 105. IMPRESSION/PLAN: 1. Heart failure (systolic and diastolic/acute): Has had a dramatic response to medical therapy with impressive negative fluid balance as mentioned above. At this point she appears to be quite compensated. Note is made of significant normalization of her left ventricular systolic function. On repeat echocardiogram yesterday from that performed 3 days earlier. This still would be quite in keeping with peripartum cardiomyopathy. At this point I have discontinued her IV Lasix. I believe it will be prudent to maintain a modest salt and fluid intake restriction. She will continue on the same lisinopril and spironolactone and we have started very low-dose carvedilol. We anticipate these agents will probably be able to be all discontinued within a matter of 1 month. 2. Pericardial effusion: Believed to be part and parcel to her marked congested state. Has no symptoms or signs of cardiac compression and followup echocardiogram yesterday showed a very small pericardial collection without cardiac compression. We anticipate this will resolve within the next few weeks. 3. Murmur: As mentioned, this is believed to be simply a flow phenomenon. Echocardiographic studies have failed to demonstrate any structural or functional valvular heart disease. Certainly has no symptoms or signs of endocarditis. 4. Abnormal EKG: Nonspecific repolarization abnormalities that actually appear to be somewhat improved over the course of the past few days. No special measures would be deemed necessary beyond temporarily continuing protective combination medical therapy, i.e. carvedilol, lisinopril and spironolactone. 5. Peripartum cardiomyopathy: As per #1, dramatic improvement in left ventricular systolic function has been documented following medical therapy. At this point she is not at increased risk of ventricular tachyarrhythmia. She would not require a life vest at the time of her discharge. Orders for her transfer from the intensive care unit to the telemetry floor have been written. We will continue to monitor her with you, but I am very happy with her dramatic response to medical care. At this point we do not anticipate she will have any long-term restrictions ultimately.
[2017-01-18 16:30] VITALS: BP 115/57
[2017-01-18] MEDS: PERCOCET 5MG/325MG TAB PO PRN (18:54)
[2017-01-18] MEDS: SPIRONOLACTONE 12.5MG PER 1/2 TABLET PO SCH (20:36)
[2017-01-18 22:00] VITALS: BP 112/63
[2017-01-19] MEDS: PERCOCET 5MG/325MG TAB PO PRN ×3 (02:28→20:28)
[2017-01-19] MEDS: ALBUTEROL SULFATE 2.5 MG/0.5 ML INH NEB SOLN NEB SCH ×6 (03:26→23:23)
[2017-01-19 06:00] VITALS: BP 118/71
[2017-01-19 06:23] LABS: ANION GAP 10 MEQ/L (8-16); BLOOD UREA NITROGEN 19 MG/DL (7-18); CALCIUM LEVEL 8.7 MG/DL (8.5-10.1); CARBON DIOXIDE LEVEL 25 MEQ/L (21-32); CHLORIDE LEVEL 103 MEQ/L (98-107); CREATININE FOR GFR 0.61 MG/DL (0.55-1.02); GLUCOSE, FASTING 99 MG/DL (70-105); POTASSIUM SERUM 4.3 MEQ/L (3.5-5.1); SODIUM LEVEL 138 MEQ/L (136-145)
[2017-01-19] MEDS: PANTOPRAZOLE 40MG INJ (PROTONIX) (C9113) IV SCH (09:40)
[2017-01-19] MEDS: CARVedilol 6.25 MG TAB PO SCH ×2 (09:41→20:30)
[2017-01-19] MEDS: LISINOPRIL 5 MG TAB PO SCH ×2 (09:41→20:29)
[2017-01-19 14:00] VITALS: BP 131/71
--- NOTE | 2017-01-19 18:19 | IPN ---
DATE: 01/19/2017 CARDIOLOGY PROGRESS NOTE COVERING FOR DR. MCMILLAN SUBJECTIVE: Has been up more today, now that she is on a regular floor with telemetry, somewhat drowsy following analgesic therapy for her abdominal discomfort with a recent section. Has been free of any shortness of breath or chest discomfort. No awareness of her heart action. OBJECTIVE: Pleasant, somewhat sleepy young lady currently lying flat without dyspnea. Slight pallor but no cyanosis. Normal oral moisture. Heart rate 88 beats per minute and regular, blood pressure 128/75, respiratory rate 16, O2 saturation 97% on room air. She is afebrile. There is no recorded weight today but her intake and output balance yesterday was minus 615 mL. Current neck veins are not elevated. Her chest is clear with good air entry over both lung hansen. Has no current dependent edema. LABORATORY DATA: Chemistry today confirms electrolyte balance with the BUN stable at 19, creatinine 0.6, fasting glucose 99, serum calcium 8.7. IMPRESSION/PLAN: 1. Peripartum cardiomyopathy/heart failure (systolic and diastolic/acute): Currently remains free of symptom or sign of congestion. Appears to be tolerating her current combination carvedilol, lisinopril and low-dose spironolactone. We have encouraged her continued gradual ambulation and would anticipate her safe discharge home within the next 24-48 hours as determined by gynecology/switchboard operator assistant. Dr. Mcmillan will be here tomorrow to resume primary cardiology care. 2. Pericardial effusion: Remains free of elevated neck veins or pulsus paradoxus. No pericardial rub. As mentioned, believed to be part and parcel of her markedly congested state and this process is anticipated to resolve spontaneously. 3. Murmur: No auscultatory change from yesterday. Findings believed to be a flow phenomenon alone. Recent echocardiogram did not indicate any evidence of structural or functional valvular disease. 4. Abnormal EKG: No followup tracing was obtained. As mentioned, she remains free of symptomatic myocardial ischemia. Currently will continue on protective combination carvedilol and lisinopril. As mentioned, Dr. Mcmillan will be returning tomorrow but I anticipate she should be able to be discharged hopefully within the next 24 hours. Her present combination therapy we would suggest that should be continued for least the next month, but this will be further defined by Dr. Mcmillan.
[2017-01-19] MEDS: SPIRONOLACTONE 12.5MG PER 1/2 TABLET PO SCH (20:29)
[2017-01-19 22:00] VITALS: BP 118/55
[2017-01-20] MEDS: ALBUTEROL SULFATE 2.5 MG/0.5 ML INH NEB SOLN NEB SCH ×3 (04:00→12:00)
[2017-01-20] MEDS: PERCOCET 5MG/325MG TAB PO PRN (04:21)
[2017-01-20 06:00] VITALS: BP 111/56
[2017-01-20 06:51] LABS: ANION GAP 9 MEQ/L (8-16); BLOOD UREA NITROGEN 19 MG/DL (7-18); CALCIUM LEVEL 9.6 MG/DL (8.5-10.1); CARBON DIOXIDE LEVEL 24 MEQ/L (21-32); CHLORIDE LEVEL 103 MEQ/L (98-107); CREATININE FOR GFR 0.58 MG/DL (0.55-1.02); GLUCOSE, FASTING 93 MG/DL (70-105); POTASSIUM SERUM 4.3 MEQ/L (3.5-5.1); SODIUM LEVEL 136 MEQ/L (136-145)
--- NOTE | 2017-01-20 08:30 | IPN ---
DATE: 01/20/2017 Ms. Brand had a good weekend. Her echocardiogram Friday revealed fairly substantial improvement in LV systolic function. She was able to be taken off loop diuretics and at this point, she is essentially asymptomatic. She has been ambulating in her room, but has not been ambulating much in the nursing station and corridors yet. She has some abdominal pain but no other complaints. Blood pressure 111/56. Heart rate has been mostly 90. She is afebrile. Saturation is 99% in room air. Fluid balance yesterday approximately equal. Weight has not been documented yet this morning. Her jugular venous pulse is not elevated. Lungs are clear. Heart exam reveals a regular rate and I do not appreciated any murmur, gallop or rub. Extremities are free of edema. Neurologically, she is intact. Her basic metabolic panel is normal with potassium 4.3, BUN 19, creatinine 0.6 and glucose 93. ASSESSMENT/PLAN: Ms. Brand is a 21-year-old female who presented with a florid congestive heart failure with pulmonary edema and was found to have severe left ventricular systolic dysfunction with mild to moderate pericardial effusion. She was delivered semi-emergently by section and subsequently remained intubated until sufficient diuresis was accomplished after which point, she was extubated and started on appropriate medications. In the followup limited echocardiogram on Friday, it already reveals substantial improvement in LV systolic function, ejection fraction (EF) was estimated around 50%. It is likely that she has peripartum cardiomyopathy but there has been very rapid recovery, which is encouraging. From my prospective, she can be discharged home. She has never had any arrhythmias that were documented and she has been free of congestive heart failure. I am going to discharge her on her current medications but will make some subtle alterations. Will take lisinopril only once a day and I am going to discontinue spironolactone. Coreg will be continued. I plan to see her in followup next week.
[2017-01-20] MEDS: PANTOPRAZOLE 40MG INJ (PROTONIX) (C9113) IV SCH (09:42)
[2017-01-20] MEDS: LISINOPRIL 5 MG TAB PO SCH (09:42)
[2017-01-20 09:43] VITALS: BP 120/75
[2017-01-20] MEDS: CARVedilol 6.25 MG TAB PO SCH (09:43)
[2017-01-20] MEDS ORDERED: CORE6.25 PO (11:51)
[2017-01-20] MEDS ORDERED: PRIN5TAB PO (11:51)
[2017-01-20] MEDS ORDERED: MEASLES,MUMPS,RUBELLA VACCINE INJ (MMR-II) (90707) SC ONE (13:00)
== END 2017-01-20 12:58 | disposition home or self-care (01) | DRG 540 ==
LOC: M LDI 12:05 → M ICU 18:27 → M MSPAV 01-18 16:21
PROVIDERS: ADMIT Specialist; ATTEND Specialist
PROC: 5A1945Z Respiratory Ventilation, 24-96 Consecutive Hours (ICD-10-PCS; 2017-01-14)
PROC: 10D00Z1 Extraction of Products of Conception, Low, Open Approach (ICD-10-PCS; principal; 2017-01-14 15:01)
DX: O90.3 Peripartum cardiomyopathy (principal); J96.91 Respiratory failure, unspecified with hypoxia; E87.3 Alkalosis; I31.3 Pericardial effusion (noninflammatory); O14.14 Severe pre-eclampsia complicating childbirth; O99.284 Endocrine, nutritional and metabolic diseases complicating childbirth; O99.52 Diseases of the respiratory system complicating childbirth; Z3A.38 38 weeks gestation of pregnancy; Z37.0 Single live birth; Z87.738 Personal history of other specified (corrected) congenital malformations of digestive system

== ENCOUNTER → 2017-01-29 | Outpatient (REF) | payer OTHER ==
[~2017-01-29] MED LIST changes: +ACET50TA PO; +CORE6.25 PO; +PRIN5TAB PO; +ROBI30SU PO
== END ==
LOC: M LAB REF 17:01
PROVIDERS: ATTEND Advanced Practice Midwife
DX: R30.0 Dysuria (principal)

== ENCOUNTER 2017-06-10 03:17 | Emergency (ER) | payer OTHER ==
[2017-06-10] MEDS: KETOROLAC 30 MG/ML VIAL (J1885) IV (06:25)
[2017-06-10 06:31] LABS: BASO # 0.1 10^3/uL (0.0-0.2); BASO % 0.4 % (0.0-1.0); EOS # 0.1 10^3/uL (0.0-0.50); EOS % 1.1 % (0.0-3.0); HEMATOCRIT 39.6 % (36.0-47.0); HEMOGLOBIN 12.6 g/dl (12.0-16.0); IMMATURE GRANULOCYTE % 0.4 % (0-3.0); LYMPH # 2.6 10^3/uL (1.5-6.5); LYMPH % 21.5 % (24.0-44.0); MEAN CORPUSCULAR HEMOGLOBIN 23.1 pg (27.0-33.0); MEAN CORPUSCULAR HGB CONC 31.8 g/dl (32.0-36.5); MEAN CORPUSCULAR VOLUME 72.5 fl (80.0-96.0); MONO # 0.7 10^3/uL (0.0-0.8); MONO % 5.4 % (0.0-5.0); NEUTROPHILS # 8.6 10^3/uL (1.8-7.7); NEUTROPHILS % 71.2 % (36.0-66.0); PLATELET COUNT, AUTOMATED 457 10^3/uL (150-450); RED BLOOD COUNT 5.46 10^6/uL (4.00-5.40); RED CELL DISTRIBUTION WIDTH 14.8 % (11.5-14.5); WHITE BLOOD COUNT 12.1 10^3/uL (4.0-10.0)
[2017-06-10 06:50] LABS: CONTROL LINE HCG INT CTR LINE PRESENT; HCG, SERUM QUALITATIVE NEGATIVE (NEGATIVE)
[2017-06-10 06:57] LABS: ANION GAP 6 MEQ/L (8-16); BLOOD UREA NITROGEN 13 MG/DL (7-18); CARBON DIOXIDE LEVEL 29 MEQ/L (21-32); CHLORIDE LEVEL 105 MEQ/L (98-107); CPK CREATINE PHOSPHOKINASE 67 U/L (26-192); CREATININE FOR GFR 0.68 MG/DL (0.55-1.30); GLUCOSE, FASTING 104 MG/DL (70-100); MB/CK RELATIVE INDEX 1.49 (< OR =4); NT-PRO BNP 87 PG/ML (<125); POTASSIUM SERUM 4.3 MEQ/L (3.5-5.1); SODIUM LEVEL 140 MEQ/L (136-145); TROPONIN I < 0.02 NG/ML (< 0.10)
[2017-06-10] MEDS ORDERED: ISOVUE-370 76% 100ML VIAL (Q9967) As Ordered (07:01)
== END 2017-06-10 09:17 | disposition home or self-care (01) ==
LOC: M ED 03:17
DX: M94.0 Chondrocostal junction syndrome [Tietze] (principal); Z97.5 Presence of (intrauterine) contraceptive device; Z86.79 Personal history of other diseases of the circulatory system
CPT/HCPCS: Q9967

== ENCOUNTER → 2017-06-12 | Outpatient (REF) | payer OTHER ==
[2017-06-12 18:29] LABS: ALBUMIN/GLOBULIN RATIO 1.05 (1.00-1.93); ALKALINE PHOSPHATASE 112 U/L (45-117); ALT/SGPT 25 U/L (12-78); ANION GAP 8 MEQ/L (8-16); AST/SGOT 15 U/L (7-37); BILIRUBIN,TOTAL 0.4 MG/DL (0.2-1.0); BLOOD UREA NITROGEN 8 MG/DL (7-18); CARBON DIOXIDE LEVEL 28 MEQ/L (21-32); CHLORIDE LEVEL 102 MEQ/L (98-107); CREATININE FOR GFR 0.46 MG/DL (0.55-1.30); GLUCOSE, FASTING 104 MG/DL (70-100); LIPASE 110 U/L (73-393); POTASSIUM SERUM 4.4 MEQ/L (3.5-5.1); SODIUM LEVEL 138 MEQ/L (136-145); TOTAL PROTEIN 7.8 GM/DL (6.4-8.2)
== END ==
LOC: M LAB REF 16:44
DX: R10.13 Epigastric pain (principal)
CPT/HCPCS: 83690

== ENCOUNTER 2017-06-13 21:37 | Inpatient (IN) | payer OTHER ==
[2017-06-13 23:11] LABS: BASO % 0.2 % (0.0-1.0); EOS % 0.1 % (0.0-3.0); HEMATOCRIT 35.9 % (36.0-47.0); HEMOGLOBIN 11.4 g/dl (12.0-16.0); IMMATURE GRANULOCYTE % 0.4 % (0-3.0); LYMPH # 1.6 10^3/uL (1.5-6.5); LYMPH % 9.6 % (24.0-44.0); MEAN CORPUSCULAR HEMOGLOBIN 23.2 pg (27.0-33.0); MEAN CORPUSCULAR HGB CONC 31.8 g/dl (32.0-36.5); MEAN CORPUSCULAR VOLUME 73.1 fl (80.0-96.0); MONO # 1.4 10^3/uL (0.0-0.8); MONO % 8.1 % (0.0-5.0); NEUTROPHILS # 13.6 10^3/uL (1.8-7.7); NEUTROPHILS % 81.6 % (36.0-66.0); PLATELET COUNT, AUTOMATED 407 10^3/uL (150-450); RED BLOOD COUNT 4.91 10^6/uL (4.00-5.40); RED CELL DISTRIBUTION WIDTH 14.8 % (11.5-14.5); WHITE BLOOD COUNT 16.7 10^3/uL (4.0-10.0)
[2017-06-13 23:13] LABS: KETONE, URINE AUTO RFX NEGATIVE (NEGATIVE); LEUKOCYTE ESTERASE UR AUTO RFX NEGATIVE (NEGATIVE); MUCUS, URINE RFX SMALL (NEGATIVE); NITRITE, URINE AUTO RFX NEGATIVE (NEGATIVE); RBC, URINE AUTO RFX 2 /HPF (0-3); SPECIFIC GRAVITY UR AUTO RFX 1.021 (1.002-1.035); SQUAM EPITHELIAL CELL UR AURFX 10 /HPF (0-6); WBC, URINE AUTO RFX 1 /HPF (0-3)
[2017-06-13] MEDS: MORPHINE 2 MG/ML 1ML SYRINGE (J2270) IV (23:20)
[2017-06-13] MEDS: ONDANSETRON 4MG/2ML VIAL (J2405) IV (23:20)
[2017-06-13] MEDS: NS 1,000 ML IV (23:21)
[2017-06-13 23:36] LABS: ALBUMIN 3.3 GM/DL (3.2-5.2); ALBUMIN/GLOBULIN RATIO 0.79 (1.00-1.93); ALKALINE PHOSPHATASE 95 U/L (45-117); ALT/SGPT 22 U/L (12-78); ANION GAP 8 MEQ/L (8-16); AST/SGOT 13 U/L (7-37); BILIRUBIN,DIRECT 0.1 MG/DL (0.0-0.2); BILIRUBIN,TOTAL 0.4 MG/DL (0.2-1.0); BLOOD UREA NITROGEN 8 MG/DL (7-18); CALCIUM LEVEL 8.8 MG/DL (8.5-10.1); CARBON DIOXIDE LEVEL 26 MEQ/L (21-32); CHLORIDE LEVEL 104 MEQ/L (98-107); CREATININE FOR GFR 0.51 MG/DL (0.55-1.30); GLUCOSE, FASTING 98 MG/DL (70-100); LIPASE 74 U/L (73-393); POTASSIUM SERUM 3.6 MEQ/L (3.5-5.1); SODIUM LEVEL 138 MEQ/L (136-145); TOTAL PROTEIN 7.5 GM/DL (6.4-8.2)
[2017-06-14] MEDS: LR 1,000 ML IV ×4 (01:46→17:34)
[2017-06-14] MEDS ORDERED: ONDANSETRON 4MG/2ML VIAL (J2405) IV ×2 (02:00→15:00)
[2017-06-14] MEDS: ACETAMINOPHEN TAB 650MG DOSE (2X325MG) PO (02:15)
[2017-06-14] MEDS: AMPICILLIN SOD/SULBACTAM SOD 3 GM in D5W MINI-BAG PLUS 100 ML IV ×4 (02:15→20:25)
[2017-06-14] MEDS: KETOROLAC 30 MG/ML VIAL (J1885) IV ×2 (05:03→20:25)
[2017-06-14 06:19] LABS: BASO % 0.2 % (0.0-1.0); EOS % 0.2 % (0.0-3.0); HEMATOCRIT 31.4 % (36.0-47.0); HEMOGLOBIN 10.1 g/dl (12.0-16.0); IMMATURE GRANULOCYTE % 0.6 % (0-3.0); LYMPH # 1.7 10^3/uL (1.5-6.5); LYMPH % 13.8 % (24.0-44.0); MEAN CORPUSCULAR HEMOGLOBIN 23.5 pg (27.0-33.0); MEAN CORPUSCULAR HGB CONC 32.2 g/dl (32.0-36.5); MONO # 1.2 10^3/uL (0.0-0.8); MONO % 9.6 % (0.0-5.0); NEUTROPHILS # 9.5 10^3/uL (1.8-7.7); NEUTROPHILS % 75.6 % (36.0-66.0); PLATELET COUNT, AUTOMATED 346 10^3/uL (150-450); RED CELL DISTRIBUTION WIDTH 14.7 % (11.5-14.5); WHITE BLOOD COUNT 12.6 10^3/uL (4.0-10.0)
[2017-06-14] MEDS: MORPHINE 4 MG/ML 1ML VIAL (J2270) IV ×2 (07:43→17:35)
[2017-06-14 10:31] LABS: CONTROL LINE HCG INT CTR LINE PRESENT; HCG, SERUM QUALITATIVE NEGATIVE (NEGATIVE)
[2017-06-14] MEDS ORDERED: dexameTHASONE 4 MG/ML 1ML VIAL (J1100) As Ordered ×2 (11:03)
[2017-06-14] MEDS ORDERED: ROCURONIUM BROMIDE 50 MG/5 ML VIAL As Ordered ×2 (11:03→12:31)
[2017-06-14] MEDS ORDERED: fentaNYL 250 MCG/5 ML INJECTION (J3010) As Ordered (11:03)
[2017-06-14] MEDS ORDERED: MIDAZOLAM INJ 2 MG/2 ML VIAL (J2250) As Ordered (11:03)
[2017-06-14] MEDS ORDERED: LIDOCAINE 2% INJ 100 MG/5 ML SDV (FOR ANES.) As Ordered (11:03)
[2017-06-14] MEDS ORDERED: PROPOFOL 200 MG/20 ML VIAL As Ordered (11:03)
[2017-06-14] MEDS: BUPIVACAINE HCL 0.25% 30 ML VIAL As Ordered (11:15)
[2017-06-14] MEDS ORDERED: ePHEDrine SULFATE 25 MG/5 ML(5MG/ML) SYRINGE As Ordered (11:19)
[2017-06-14] MEDS ORDERED: PHENYLephrine HCL 500 MCG/5 ML (100MCG/ML) SYRINGE (J2370) As Ordered (11:19)
[2017-06-14] MEDS ORDERED: ONDANSETRON 4MG/2ML VIAL (J2405) As Ordered (12:40)
[2017-06-14] MEDS ORDERED: NEOSTIGMINE 10 MG/10 ML VIAL (J2710) As Ordered (12:40)
[2017-06-14] MEDS ORDERED: GLYCOPYRROLATE INJ 0.2 MG/ML 2 ML VIAL As Ordered (12:40)
[2017-06-14] MEDS ORDERED: KETOROLAC 60 MG/2 ML VIAL (J1885) As Ordered (12:41)
[2017-06-14] MEDS ORDERED: HYDROmorphone HCL 2 MG/ML 1ML VIAL (J1170) As Ordered (12:54)
[2017-06-14] MEDS ORDERED: DESFLURANE 240 ML INHALANT As Ordered (13:21)
[2017-06-14] MEDS: UNASYN 1.5 GM VIAL As Ordered (14:06)
[2017-06-14] MEDS ORDERED: fentaNYL 100 MCG/2 ML INJECTION (J3010) As Ordered (14:51)
[2017-06-14] MEDS: fentaNYL 100 MCG/2 ML INJECTION (J3010) IV ×4 (14:52→15:20)
[2017-06-14] MEDS ORDERED: MEPERIDINE INJ 25 MG/ML VIAL (J2175) IV (15:00)
[2017-06-14] MEDS ORDERED: MORPHINE 10 MG/ML 1ML VIAL (J2270) IV (15:00)
[2017-06-14] MEDS: NORCO, ANEXSIA 5/325MG TABLET (HYDROcodone/ACETAMINOPHEN) PO ×2 (18:40→23:07)
[2017-06-15] MEDS: MORPHINE 4 MG/ML 1ML VIAL (J2270) IV ×2 (00:04→17:28)
[2017-06-15] MEDS: AMPICILLIN SOD/SULBACTAM SOD 3 GM in D5W MINI-BAG PLUS 100 ML IV ×4 (03:34→20:13)
[2017-06-15] MEDS: KETOROLAC 30 MG/ML VIAL (J1885) IV ×3 (05:25→20:14)
[2017-06-15] MEDS: LR 1,000 ML IV ×2 (08:37→20:14)
[2017-06-15] MEDS: NORCO, ANEXSIA 5/325MG TABLET (HYDROcodone/ACETAMINOPHEN) PO ×3 (08:43→23:21)
[2017-06-16] MEDS: AMPICILLIN SOD/SULBACTAM SOD 3 GM in D5W MINI-BAG PLUS 100 ML IV ×4 (02:47→20:22)
[2017-06-16] MEDS: KETOROLAC 30 MG/ML VIAL (J1885) IV (02:54)
[2017-06-16 07:03] LABS: BASO % 0.4 % (0.0-1.0); EOS # 0.1 10^3/uL (0.0-0.50); EOS % 1.7 % (0.0-3.0); HEMATOCRIT 28.5 % (36.0-47.0); HEMOGLOBIN 8.8 g/dl (12.0-16.0); IMMATURE GRANULOCYTE % 0.7 % (0-3.0); LYMPH % 26.4 % (24.0-44.0); MEAN CORPUSCULAR HEMOGLOBIN 22.7 pg (27.0-33.0); MEAN CORPUSCULAR HGB CONC 30.9 g/dl (32.0-36.5); MEAN CORPUSCULAR VOLUME 73.6 fl (80.0-96.0); MONO # 0.6 10^3/uL (0.0-0.8); MONO % 7.3 % (0.0-5.0); NEUTROPHILS # 4.8 10^3/uL (1.8-7.7); NEUTROPHILS % 63.5 % (36.0-66.0); PLATELET COUNT, AUTOMATED 333 10^3/uL (150-450); RED BLOOD COUNT 3.87 10^6/uL (4.00-5.40); RED CELL DISTRIBUTION WIDTH 14.8 % (11.5-14.5); WHITE BLOOD COUNT 7.6 10^3/uL (4.0-10.0)
[2017-06-16 07:33] LABS: ALBUMIN 2.4 GM/DL (3.2-5.2); ALKALINE PHOSPHATASE 72 U/L (45-117); ALT/SGPT 23 U/L (12-78); ANION GAP 7 MEQ/L (8-16); AST/SGOT 14 U/L (7-37); BILIRUBIN,TOTAL 0.3 MG/DL (0.2-1.0); BLOOD UREA NITROGEN 7 MG/DL (7-18); CALCIUM LEVEL 8.2 MG/DL (8.5-10.1); CARBON DIOXIDE LEVEL 30 MEQ/L (21-32); CHLORIDE LEVEL 105 MEQ/L (98-107); CREATININE FOR GFR 0.43 MG/DL (0.55-1.30); GLUCOSE, FASTING 85 MG/DL (70-100); POTASSIUM SERUM 3.8 MEQ/L (3.5-5.1); SODIUM LEVEL 142 MEQ/L (136-145); TOTAL PROTEIN 5.4 GM/DL (6.4-8.2)
[2017-06-16] MEDS: LR 1,000 ML IV (07:49)
[2017-06-16] MEDS: NORCO, ANEXSIA 5/325MG TABLET (HYDROcodone/ACETAMINOPHEN) PO (15:11)
[2017-06-17] MEDS: AMPICILLIN SOD/SULBACTAM SOD 3 GM in D5W MINI-BAG PLUS 100 ML IV ×2 (02:08→08:55)
[2017-06-17] MEDS: NORCO, ANEXSIA 5/325MG TABLET (HYDROcodone/ACETAMINOPHEN) PO (08:55)
[2017-06-17] MEDS: IBUPROFEN 400 MG TAB PO (09:52)
== END 2017-06-17 10:10 | disposition home or self-care (01) | DRG 263 ==
LOC: M ED INP 06-14 01:46 → M PED 06-14 15:45 → M ED 21:37
PROC: 0FT44ZZ Resection of Gallbladder, Percutaneous Endoscopic Approach (ICD-10-PCS; principal; 2017-06-14 10:00)
PROC: 0DNU4ZZ Release Omentum, Percutaneous Endoscopic Approach (ICD-10-PCS; 2017-06-14 10:00)
DX: K80.62 Calculus of gallbladder and bile duct with acute cholecystitis without obstruction (principal); E66.9 Obesity, unspecified; K66.0 Peritoneal adhesions (postprocedural) (postinfection); Z87.76 Personal history of (corrected) congenital malformations of integument, limbs and musculoskeletal system

== ENCOUNTER → 2023-01-13 | Outpatient (REF) | payer OTHER, SELFPAY ==
[~2023-01-13] MED LIST changes: -ACET50TA PO; +IBUP-1114 PO; +IBUPOTC PO; +MAPA500T2 PO; +MIRE1IUD IU; +OXYC1TAB23 PO; +PERC5TAB12 PO
== END ==
LOC: M SFHCWAGY 18:02
PROVIDERS: ATTEND Specialist
DX: Z01.419 Encounter for gynecological examination (general) (routine) without abnormal findings (principal)
CPT/HCPCS: 87624; G0123